=== PATIENT | male | born 1945 | race Caucasian/White ===

== ENCOUNTER 2016-09-19 05:56 | Inpatient (IN) | payer BC ==
[2016-09-14 16:09] LABS: HEMATOCRIT 38.6 % (40.0-51.0)
[2016-09-14 16:17] LABS: BUN (BLOOD UREA NITROGEN) 26 MG/DL (6-23); CALCIUM, SERUM 8.9 MG/DL (8.5-10.4); CHLORIDE, SERUM 108 MMOL/L (96-112); CO2 (CARBON DIOXIDE) 27 MMOL/L (24-34); CREATININE 2.14 MG/DL (0.70-1.30); GFR AFRICAN AMERICAN 34 ML/MIN (>=60); GFR NON AFRICAN AMERICAN 30 ML/MIN (>=60); GLUCOSE, SERUM 114 MG/DL (60-99); POTASSIUM, SERUM 4.3 MMOL/L (3.5-5.3); SODIUM, SERUM 141 MMOL/L (135-148)
--- NOTE | ~2016-09-19 | OP ---
Record Of Operation [facility] [address] [place]. [address] NAME: SEVEN MORGAN : 41 STATUS : DIS IN PAT#: [id number] AGE: 71 ADM/REG DATE : 09/19/16 MR#: [id number] REPORT SERV DATE: 09/20/16 DICTATED BY: ALMITA FOWLER DATE: 09/20/16 REPORT STATUS : Draft TRANSCRIBED BY: MODL DATE: 09/20/16 DATE OF PROCEDURE: 09/19/2016 PREOPERATIVE DIAGNOSIS: High-grade asymptomatic right internal carotid artery stenosis. POSTOPERATIVE DIAGNOSIS: High-grade asymptomatic right internal carotid artery stenosis. PROCEDURE: 1. Right carotid endarterectomy with intraoperative shunt placement and CorMatrix patch angioplasty. 2. Completion ultrasound. SURGEON: Almita Fowler M.D. CUSTOMER SALES REPRESENTATIVE: Vitaly. ANESTHESIA: General endotracheal. ESTIMATED BLOOD LOSS: 75 mL. SPECIMEN: Right carotid plaque. DRAINS: Round 15 Rodríguez to the right neck. COMPLICATIONS: None. INDICATION: Mr. Morgan is a very pleasant, 71-year-old man with recent diagnosis of high- grade right internal carotid artery stenosis. Fortunately, he has been asymptomatic from a stroke standpoint. He is recommended for carotid endarterectomy for stroke prevention. DETAILS OF PROCEDURE: After informed consent was obtained, the patient was brought to the operating room and placed in supine position. After administration of anesthesia, he was prepped and draped in usual sterile fashion. A time-out was performed. Right anterior sternocleidomastoid incision was made. I dissected down through the platysma and subcutaneous tissues with cautery. I identified the internal jugular vein and retracted it laterally. Facial vein was identified and ligated proximally distally and then divided. Underlying the facial vein was the carotid bifurcation. It was obviously heavily diseased. We systemically heparinized with 5000 units of IV heparin. I then further exposed the internal and external carotid arteries and encircled with vessel loops. Common carotid artery was encircled with umbilical tape. The vagus and hypoglossal nerves were identified and preserved. After the heparin circulated, I clamped 1st the internal carotid followed by the common carotid and external carotid arteries. I performed arteriotomy and extended proximally and distally with Meza scissors. There was dense heterogeneous plaque throughout the distal common carotid artery and bifurcation extending well into the internal carotid artery. The plaque extended approximately 2 cm in the internal carotid artery. There was a high-grade stenosis in the internal carotid artery approaching 90%. There was Record Of Operation [address] [place]. [address] NAME: SEVEN MORGAN : 41 STATUS : DIS IN PAT#: [id number] AGE: 71 ADM/REG DATE : 09/19/16 MR#: [id number] REPORT SERV DATE: 09/20/16 DICTATED BY: ALMITA FOWLER DATE: 09/20/16 REPORT STATUS : Draft TRANSCRIBED BY: MODL DATE: 09/20/16 no thrombus present or ulceration. After getting beyond the distal endpoint, I placed a 10- [place] shunt first distally into the internal carotid artery, then proximally into the common carotid artery. There was weak backbleeding from the internal carotid. Shunt was secured in place with Rumel tourniquet. After that, I performed extensive endarterectomy of the distal common carotid artery with the bifurcation of the internal carotid. I also performed eversion endarterectomy of the external carotid artery. Plaque was passed off the table as a specimen. Plaque feathered to a beautiful distal endpoint. The proximal endpoint was cut and flushed with Meza scissors. After that, all remaining loose debris was removed. I irrigated with heparinized saline. I then performed a patch angioplasty with a CorMatrix patch. This was sewn in place with running 6-0 Prolene. Prior to completing the suture line, shunt was removed. I forward flushed and back flushed, and reclamped the arteries. I irrigated once again with heparinized saline. I then completed the suture line. After that, I restored flow from the common to the external carotid artery leaving the internal clamp for several seconds for further flushing. I then removed the internal clamp. The artery was obviously pulsatile. Suture line was hemostatic. I then interrogated the proximal and distal end points with a hand-held ultrasound. There was no free flap or floating debris. No velocity elevations or turbulent flow. Normal Doppler signals were appreciated in all three vessels. After that, we ensured hemostasis. I irrigated with sterile saline. I then placed a round 15 Rodríguez drain by the vessel and brought out the inferior portion of the incision. This was secured to the skin with 2-0 nylon. After that, the platysma layer was closed with running 2-0 Vicryl. The skin was closed with running 4-0 Monocryl in a subcuticular fashion. Dermabond was applied. Drain was hooked to bulb suction. The patient tolerated the procedure well with no complications. I was present and participated for this entire case as dictated. While still in the operating room, he was allowed to awaken from anesthesia. He followed commands and moved all four extremities symmetrically. RAMU/GUI Almita Fowler M.D. / [id number] CC: Tc Alvarado M.D. Lindsay C Crawford, M.D.
[~2016-09-19 05:56] MED LIST: ASAB PO; LIPITOR20 PO; NORV5 PO
[2016-09-20] MEDS ORDERED: PCET PO (09:14)
== END 2016-09-20 12:40 | disposition home or self-care (01) | DRG 39 ==
LOC: SDC/OF 05:56 → PACU 11:04 → CVICU 12:27
PROVIDERS: Surgery
PROC: 03CH0ZZ Extirpation of Matter from Right Common Carotid Artery, Open Approach (ICD-10-PCS; principal; 2016-09-20)
DX: I65.23 Occlusion and stenosis of bilateral carotid arteries (principal); J44.9 Chronic obstructive pulmonary disease, unspecified; N18.3 Chronic kidney disease, stage 3 (moderate); I12.9 Hypertensive chronic kidney disease with stage 1 through stage 4 chronic kidney disease, or unspecified chronic kidney disease; F17.210 Nicotine dependence, cigarettes, uncomplicated
CPT/HCPCS: 80048; 82962; 85014; 85018; 87641; 88304; 88311; 93005; A9270-GY; C1782; J0690; J2250; J2270; J2370; J2405; J2550; J2710; J3010